=== PATIENT | female | born 2000 | race Caucasian/White ===

== ENCOUNTER 2020-10-28 08:45 | Emergency (ER) | payer OTHER ==
[~2020-10-28 08:45] MED LIST: FIORICET1 EACH PO; ONDANSETRON ODT4 MG SL; ZOFRAN4 MG PO
[2020-10-28 10:26] LABS: BASOPHIL 0.9 % (0-2); EOSINOPHIL 2.3 % (0-5); HCT 45.1 % (37.0-47.0); HGB 14.6 g/dl (12.5-16.0); LYMPHOCYTE 30.5 % (15-48); MCH 31.1 pg (25.0-31.0); MCHC 32.4 g/dL (32.0-36.0); MCV 96.2 fL (78.0-100.0); MONOCYTE 6.9 % (0-12); MPV 11.2 fL (6.0-9.5); NEUTROPHIL 59.3 % (41-80); NRBC 0; PLT 266 K/uL (150-400); RBC 4.69 M/uL (4.20-5.40); RDW 12.6 % (11.5-14.0); WBC 6.9 K/uL (4.0-10.5)
[2020-10-28 10:27] LABS: BILIRUBIN NEGATIVE (NEGATIVE); BLOOD NEGATIVE Ery/uL (NEGATIVE); CLARITY CLEAR (CLEAR); COLOR YELLOW (YELLOW); GLUCOSE (U) NORMAL (NORMAL); LEUKOCYTES 1+ Leu/uL (NEGATIVE); NITRITE NEGATIVE (NEGATIVE); PROTEIN NEGATIVE (NEGATIVE); SPECIFIC GRAVITY <=1.005 (1.001-1.030); UROBILINOGEN 0.2 mg/dL (0.2-1.0); pH 7.5 (5.0-9.0)
[2020-10-28 10:36] LABS: BACTERIA 1+
[2020-10-28 10:42] LABS: ALBUMIN 4.1 g/dL (3.4-5.0); BILIRUBIN - TOTAL 0.6 mg/dL (0.2-1.0); BUN/CREAT RATIO (CALC) 11.7 RATIO; CREATININE 0.6 mg/dL (0.51-0.95); GLOBULIN (CALCULATION) 3.5 g/dL; POTASSIUM 4.1 mmol/L (3.5-5.1); TOTAL PROTEIN 7.6 g/dL (6.4-8.2)
[2020-10-28] MEDS ORDERED: PYRIDIUM200 M1 PO (11:06)
[2020-10-28] MEDS ORDERED: BACTRIM DS TAB1 EACH PO (11:06)
== END 2020-10-28 12:10 | disposition home or self-care (01) ==
LOC: FER 08:45
PROVIDERS: Emergency Medicine
DX: N39.0 Urinary tract infection, site not specified (principal); Z88.6 Allergy status to analgesic agent; Z88.8 Allergy status to other drugs, medicaments and biological substances
CPT/HCPCS: 36415; 80053; 81001; 84145; 85025; 87088; J0696; J7030

== ENCOUNTER 2020-12-14 10:02 | Emergency (ER) | payer OTHER ==
[~2020-12-14 10:02] MED LIST changes: +BACTRIM DS TAB1 EACH PO; +PYRIDIUM200 M1 PO
[2020-12-14 10:46] LABS: BILIRUBIN NEGATIVE (NEGATIVE); BLOOD NEGATIVE Ery/uL (NEGATIVE); CLARITY CLEAR (CLEAR); COLOR ORANGE (YELLOW); GLUCOSE (U) TRACE mg/dL (NORMAL); LEUKOCYTES TRACE Leu/uL (NEGATIVE); NITRITE POSITIVE (NEGATIVE); PROTEIN TRACE (LOW) mg/dL (NEGATIVE); SPECIFIC GRAVITY 1.015 (1.001-1.030)
[2020-12-14 11:06] LABS: BACTERIA TRACE; URINARY RBC RARE
[2020-12-14] MEDS ORDERED: DOXYCYCLINE MO100 MG PO (12:47)
[2020-12-14] MEDS ORDERED: PYRIDIUM200 MG PO (12:48)
[2020-12-16 13:08] LABS: CHLAMYDIA TRACHOMATIS, NAA Negative (Negative); NEISSERIA GONORRHOEAE, NAA Negative (Negative)
== END 2020-12-14 13:15 | disposition home or self-care (01) ==
LOC: FER 10:02
PROVIDERS: Emergency Medicine
DX: N34.1 Nonspecific urethritis (principal)
CPT/HCPCS: 81001; 87088; 87491; 87591; 99284; J0696

== ENCOUNTER 2021-06-18 08:59 | Emergency (ER) | payer OTHER ==
[~2021-06-18 08:59] MED LIST changes: +DOXYCYCLINE MO100 MG PO; +PYRIDIUM200 MG PO
[2021-06-18 11:29] LABS: BASOPHIL 0.8 % (0-2); EOSINOPHIL 0.3 % (0-5); HCT 40.3 % (37.0-47.0); HGB 13.9 g/dl (12.5-16.0); LYMPHOCYTE 14.7 % (15-48); MCH 31.7 pg (25.0-31.0); MCHC 34.5 g/dL (32.0-36.0); MCV 91.8 fL (78.0-100.0); MONOCYTE 13.2 % (0-12); MPV 11.1 fL (6.0-9.5); NEUTROPHIL 70.7 % (41-80); NRBC 0; PLT 205 K/uL (150-400); RBC 4.39 M/uL (4.20-5.40); RDW 12.1 % (11.5-14.0)
[2021-06-18 12:04] LABS: ALBUMIN 4.1 g/dL (3.4-5.0); BILIRUBIN - TOTAL 0.3 mg/dL (0.2-1.0); BUN/CREAT RATIO (CALC) 7.4 RATIO; C-REACTIVE PROTEIN 0.8 mg/dL (<=0.90); CREATININE 0.68 mg/dL (0.51-0.95); GLOBULIN (CALCULATION) 3.3 g/dL; TOTAL PROTEIN 7.4 g/dL (6.4-8.2)
[2021-06-18] MEDS ORDERED: FIORICET1 EACH PO (16:22)
[2021-06-18] MEDS ORDERED: ZOFRAN4 M1 PO (16:22)
== END 2021-06-18 16:35 | disposition home or self-care (01) ==
LOC: FER 08:59
PROVIDERS: Emergency Medicine
DX: G43.909 Migraine, unspecified, not intractable, without status migrainosus (principal); U07.1 COVID-19
CPT/HCPCS: 36415; 80053; 82728; 83615; 85025; 86140; J1200; J1885; J2405; J2765; J7030; U0002

== ENCOUNTER 2022-01-13 15:55 | Emergency (ER) | payer SELFPAY ==
[~2022-01-13 15:55] MED LIST changes: +ZOFRAN4 M1 PO
[2022-01-13] MEDS ORDERED: AMOX TR-K CLV1 EAC4 PO (16:48)
[2022-01-13] MEDS ORDERED: MOTRIN600 MG PO (16:48)
== END 2022-01-13 16:50 | disposition home or self-care (01) ==
LOC: FER 15:55
DX: H66.002 Acute suppurative otitis media without spontaneous rupture of ear drum, left ear (principal); Z28.310 Unvaccinated for COVID-19
CPT/HCPCS: 99282